=== PATIENT | male | born 1960 | race Caucasian/White ===

== ENCOUNTER → 2024-11-14 12:36 | Outpatient (BNVA) | payer MEDICARE, OTHER, SELFPAY | PROVIDERS: PCP Nurse Practitioner Family; Visit Provider Nurse Practitioner Family | DX: I10 Essential (primary) hypertension (principal); E55.9 Vitamin D deficiency, unspecified; Z12.5 Encounter for screening for malignant neoplasm of prostate | CPT/HCPCS: 80053; 80061; 82306; 82607; 84443; 85025; G0103 ==

== ENCOUNTER 2025-02-05 00:42 | Observation (INO) | payer MEDICARE, OTHER, SELFPAY ==
--- OUTSIDE RECORDS SUMMARY | 2018-11-02 10:45 | XMS_ITS | Continuity of Care Document ---
Author Organization [facility] Address [address] [place] [address] Phone Care Team Providers Care Assortment Planner Name Role Phone Felix Mcbride MD Unavailable Unavailable Allergies, Adverse Reactions, Alerts Substance Reaction Status Criticality No Known Allergies Active No Inform ation Medications Medication Instructions Dosage Effective Dates (start - stop) Status Comments NO CURRENT MEDICATIONS_ N/A Not Applicable - Active Procedures Procedure Date Office Visit Established Office Visit Established Office Visit New Advance Directives Directive Yes / No Effective Date File Name No Information Encounters Encounter Description Practice Location Reason(s) For Visit Diagnoses Date Provider Providers Copied on Encounter Office Visit Established [facility], [address], [place], [facility], tel:[phone] [facility] Pain in right elbow Reed Washington. [address], [place], [id number]. tel:[phone] Office Visit Established [facility], [address] [place], [address], tel:[phone] [facility] Pain in right elbow Reed [place]. [address], [place], [id number]. tel:[phone] Office Visit New [facility], [address], [place], [facility], tel:[phone] [facility] Pain in right elbow Reed Washington. [address], [place], [id number]. tel:[phone] Family History Family Member Type Diagnosis Age At Onset No Information Payers Payer name Insurance type Covered green party ID Keaton holm(s) Work Comp Insurance W [id number] Social History Type Description Quantity Date Captured Comments Sex Male Smoking Status No Information Chief Complaint And Reason For Visit No Information History Of Present Illness Encounter Date Complaint History Of Prese nt Illness No Information Medications Administered Medication Instructions Dosage Effective Dates (start - stop) Status Comments No Drug Therapy Prescribed Instructions Date Instruction Additional Infor mation No Information Assessments Type Assessment Date No Information
[2025-02-05] VITALS (27 sets, daily range): BP systolic 114–166; BP diastolic 63–112; PULSE 52–80; RESP 14–28; TEMP 36.4–37.1; O2SAT 91–98; BMI 26.1; BMI 25.9
--- NOTE | 2025-02-05 02:17 | USCV_ITS ---
Klaus Corbett Age: 64 Gender: M : 1960 Exam Date: 02/05/2025 07:32 Ordering Phys: Miky Freedman MD Technologist: Nader Lizama Exam Location: [facility] Indication: new onset afib BP: 123 / 82 HR: 57 Rhythm: Sinus Technical Quality: Adequate MEASUREMENTS (Male / Female) Normal Values 2D ECHO LV Diastolic Diameter PLAX 4.9 cm 4.2 - 5.9 / 3.9 - 5.3 cm IVS Diastolic Thickness 1.1 cm 0.6 - 1.0 / 0.6 - 0.9 cm IVS Systolic Thickness 1.4 cm LVPW Diastolic Thickness 1.2 cm 0.6 - 1.0 / 0.6 - 0.9 cm LVPW Systolic Thickness 1.4 cm LVOT Diameter 2.0 cm LV Ejection Fraction 2D Teich 69.0 % LV Ejection Fraction MOD 4C 67.9 % LV Ejection Fraction MOD 2C 75.2 % LV Ejection Fraction 2C AL 75.5 % LA Diameter 3.1 cm RA Systolic Volume 4C AL 40.1 ml RA Systolic Volume 4C MOD 40.0 ml LA Sys Volume AL 28.0 cm cubed LA Sys Volume Index AL 15.1 cm cubed/m squared Aorta at Sinotubular Diameter 2.4 cm IVC Diameter 1.4 cm M-MODE LA Ao Ratio MM 1.4 AV Cusp Separation MM 2.2 cm DOPPLER AV Peak Velocity 180.0 cm/s LVOT Peak Velocity 124.0 cm/s AV Area Cont Eq vti 2.2 cm squared AV Area Cont Eq pk 2.2 cm squared MV Peak Velocity 110.0 cm/s MV Area PHT 5.8 cm squared Mitral E to A Ratio 1.0 TR Peak Velocity 240.0 cm/s TR Peak Gradient 23.0 mmHg TR Mean Velocity 202.0 cm/s TR Mean Gradient 17.0 mmHg TR Velocity Time Integral 73.5 cm PV Peak Velocity 91.0 cm/s RV Ejection Time 0.3 s FINDINGS Left Ventricle Normal left ventricular size and systolic function, EF 75%.mild left ventricular hypertrophy. No regional wall motion abnormalities. Grade I/IV diastolic dysfunction (abnormal relaxation filling pattern), normal to mildly elevated filling pressures. Right Ventricle Normal right ventricular size and systolic function. Right Atrium Normal right atrial size. Left Atrium Normal left atrial size. Mitral Valve Mild mitral annular calcification. Trace mitral valve regurgitation. Aortic Valve Thickened aortic valve. Mild aortic valve regurgitation. Aortic valve sclerosis. Tricuspid Valve No gross abnormalities noted Pulmonic Valve Pulmonic valve not well visualized. Pericardium No pericardial effusion. Aorta Normal aortic annulus size. IVC Normal inferior vena cava. CONCLUSIONS Normal left ventricular size and systolic function, EF 75%.mild left ventricular hypertrophy. No regional wall motion abnormalities. Grade I/IV diastolic dysfunction (abnormal relaxation filling pattern), normal to mildly elevated filling pressures. Mild mitral annular calcification. Trace mitral valve regurgitation. Thickened aortic valve. Mild aortic valve regurgitation. Features of aortic valve sclerosis. There is no pericardial effusion. There are no intracardiac masses. No similar previous studies are available for comparison Dr Nikki Mccrary MD FACC (Electronically Signed) Final Date: 05 February 2025 09:20 S
--- NOTE | 2025-02-05 02:17 | P.HP_ITS ---
Providers/Chief Complaint Admitting Physician: Miky Freedman MD Primary Care Provider: MAR Ruth Chief Complaint: Afib RVR History of Present Illness Klaus Corbett Jr is a 64 year old male who sees nurse practitioner Brynn in [place]. He has history of hypertension and hyperlipidemia but not diabetes. Patient is on amlodipine but not cholesterol medication because his cholesterol was borderline. 4:30 PM on 02/04/2025 he was on his porch and got up to take the ice tea into the fridge when he felt dyspnea on exertion tachycardia tightness in his chest and left arm became numb. He went to the emergency department at [facility] and saw Dr. Andry Vazquez. Patient was treated with diltiazem drip and this slowed his heart rate and he felt just a little bit of discomfort in his arm heart rate was down to 80-86. He was referred for admission on Cardizem drip and accepted. By the time the patient reached our hospital he was back in sinus rhythm. He was placed in CDU on observation at this time. Patient denies past history of atrial fibrillation, coronary artery disease, family history of coronary artery disease. Past surgical history knee surgery 2 years ago Family history negative for coronary artery disease Vitals at [facility] blood pressure 122/76 pulse 86 respirations 17 O2 sat 96% on room air with atrial fibrillation on Cardizem drip Review of Systems Narrative: General No fevers chills weight gain weight loss Cardiovascular positive for palpitations and chest discomfort as above he has not had leg swelling Respiratory positive for dyspnea on exertion with today's episode but typically not he denies coughing or wheezing GI no nausea vomiting diarrhea constipation no dysuria hematuria Neuro no seizures strokes limb weakness Malignancy history negative Hematologic no history of clots or bleeding disorder Psych negative for depression or anxiety Medications/Allergies Home Medications ?Medication ?Instructions ?Recorded ?Confirmed ?Last Taken ?Type amlodipine 10 mg tablet 10 mg PO DAILY 11/14/2412/17 Unknown History magnesium aspart,citrate,oxide mg PO 11/14/24 01/06/25 Unknown History multivitamin 1 tab PO DAILY 11/14/2412/17 Unknown History omega 6-iyk-ayl-fish oil 1,000 mg 1 cap PO DAILY 11/1401/06/25 Unknown History (120 mg-180 mg) capsule (Fish Oil) ciprofloxacin 0.3 %-dexamethasone 4 drp otic (ear) BID 7 days #7.5 mL 01/06/25 01/06/25 Unknown Rx 0.1 % ear drops,suspension Allergies Allergy/AdvReac Type Severity Reaction Status Date / Time No Known Allergies Allergy Unverified 01/06/25 09:27 PFSH Acute PFSH: Medical History (Updated 02/05/25 @ 02:23 by Miky Freedman MD) Hyperlipidemia Heart murmur Muscular dystrophy Hypertension Surgical History History of colonoscopy about 2014 H/O right knee surgery Social History (Updated 02/05/25 @ 02:22 by Miky Freedman MD) Smoking and tobacco/nicotine status: never used tobacco/nicotine Second hand smoke exposure: No Alcohol intake: current Alcohol intake frequency: few times a week Alcohol type: beer and hard liquor Alcohol use comment: 4 a week Substance/Drug Use: never Additional social history: He wants full CODE STATUS as discussed today with Miky Freedman MD on 02/05/2025 in the presence of his son Daniel Corbett who works here at the [employer] overseeing environmental services Lives independently: Yes Household members: spouse Marital status: Current occupational status: retired and disabled Previous occupational history: 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 Current gender identity: Male Tona/[employer]: [employer] Special tona needs: No Agree to transfusion: Yes Vitals/I&O/Wt Last Vital Signs Temp 97.5 F L 02/05/25 00:51 Pulse 60 02/05/25 01:46 Resp 19 H 02/05/25 01:30 BP 131/78 02/05/25 01:30 Pulse Ox 92 02/05/25 01:30 O2 Del Method Room Air 02/05/25 01:30 Weight last 48 hrs Weight 73.5 kg Physical Exam Narrative: General well-developed well-nourished male in no acute cardiopulmonary stress Neck no bruits Oral Mallampati 1 CV regular rate and rhythm Lungs clear to auscultation bilaterally Abdomen positive bowel tones soft nontender Calves no tenderness cords pretibial edema Mood and affect normal Data Other Labs: Potassium 4.3 magnesium 1.9 at [facility]. CPK 376 MB 11.9 troponin negative A&P Assessment and plan 1. New onset atrial fibrillation: He has spontaneously converted to sinus rhythm. He has already been given apixaban 5 mg and intended to be on twice a day. If he remains in sinus rhythm he can be discharged later today to wear an event monitor to see if he is going in and out of atrial fibrillation. He should stay on anticoagulation for now. Stopped Norvasc and start diltiazem if heart rate allows will go with short acting 30 mg for now if there is significant bradycardia will avoid 2. Hypertension: Stable 3. Hyperlipidemia: 11/14/2024 notable for triglycerides 394 LDL 101 cholesterol 219 HDL 39. This is not a good lipid profile. Patient was started on atorvastatin 20 mg daily 4. Heart murmur: Plan echo to follow-up heart murmur and A-fib. On cursory cardiac exam I did not appreciate a murmur 5. Muscular dystrophy: Recently diagnosed PDMP PDMP Reviewed: Not Reviewed Attestations Medical Necessity Statement*: Patient is a hospital on observation and will require an anticipated less than 2 midnights for workup prior to discharge Coding Level of Care Code Acute Code for Chg Fwd Diagnoses New onset atrial fibrillation I48.91 Hypertension I10 Hyperlipidemia E78.5 Heart murmur R01.1 Muscular dystrophy G71.00 Time Spent (min) 70
[2025-02-05 09:42] LABS: Estmated Average Glucose 126; Hemoglobin A1C 6.0 % (4.0-6.0)
[2025-02-05 09:54] LABS: Cholesterol 210 mg/dL (0-200); HDL Cholesterol 39 mg/dL (60-100); Thyroid Stimulating Hormone 1.59 uIU/mL (0.27-4.20); Triglycerides 200 mg/dL (0-150)
--- NOTE | 2025-02-05 12:05 | P.DS_ITS ---
Discharge Providers Date of Admission: 02/05/25 00:42 Date of Discharge: February 05, 2025 Attending Provider at Admission: Miky Freedman MD Attending Provider at Discharge: Jarad Bardales MD Primary Care Provider: MAR Ruth Diagnoses at Discharge Discharge Diagnosis 1. New onset atrial fibrillation: 2. Hypertension: 3. Hyperlipidemia: 4. Heart murmur: 5. Muscular dystrophy: Reason for Visit Reason for Visit: Afib RVR Hospital Course Hospital Course This is a 64-year-old male who has a history of hyperlipidemia, hypertension, who presents to [facility] due to chest pain and palpitations Patient was admitted to [facility] for new onset atrial fibrillation - On Cardizem drip, but converted to normal sinus rhythm upon arrival to [facility] - He was managed on metoprolol 12.5 twice daily - Patient's CHADS2 Vasc score was 2, discussed risk and benefits of anticoagulant therapy, patient voiced understanding, all questions answered, agreed to proceed, managed on Eliquis - He will be discharged on metoprolol 12.5 mg twice daily, with Eliquis 5 mg twice daily with close follow-up with primary care provider For his complaints of chest pain - No recurrent chest pain - Patient declines statin - Will be discharged on Eliquis as above - Nitro as needed for chest pain CONCLUSIONS Normal left ventricular size and systolic function, EF 75%.mild left ventricular hypertrophy. No regional wall motion abnormalities. Grade I/IV diastolic dysfunction (abnormal relaxation filling pattern), normal to mildly elevated filling pressures. Mild mitral annular calcification. Trace mitral valve regurgitation. Thickened aortic valve. Mild aortic valve regurgitation. Features of aortic valve sclerosis. There is no pericardial effusion. There are no intracardiac masses. No similar previous studies are available for comparison -Troponin from [facility] was 0.012 -Denied any chest pain during that hospitalization -Patient was advised if he were to have any recurrent chest pain to immediately go to emergency room - Nitroglycerin at as needed - Follow-up with cardiology for consideration of stress testing Physical Exam Const: COMMON NORMALS: no acute distress and patient oriented x3 Resp: COMMON NORMALS: normal respiratory effort, No retractions, No use of accessory muscles and clear to auscultation bilaterally AUSCULTATION: clear to auscultation bilaterally Cardio: COMMON NORMALS: regular rate, regular rhythm, S1 normal heart sound present and S2 normal heart sound present RATE: regular rate RHYTHM: regular rhythm HEART SOUNDS: S1 normal heart sound present and S2 normal heart sound present GI: COMMON NORMALS: Normal to inspection, nondistended, normoactive bowel sounds present and non-tender Extremity: COMMON NORMALS: no pedal edema Neuro: COMMON NORMALS: patient oriented x3 Psych: COMMON NORMALS: mental status grossly normal Discharge Data Studies Completed and Pending Completed Studies During Hospitalization Category Date Time Status CV. echo complete* [id number] Routine Ultrasound 02/05/25 02:17 Completed Pending at discharge Category Date Time Status Basic Metabolic Panel AM LABS Lab 02/06/25 04:00 Ordered Magnesium AM LABS Lab 02/06/25 04:00 Ordered Phosphorus AM LABS Lab 02/06/25 04:00 Ordered Laboratory Results Estimat Average Glucose 126 02/05/25 08:49 Hemoglobin A1c 6.0 % (4.0-6.0) 02/05/25 08:49 Triglycerides 200 mg/dL (0-150) H 02/05/25 08:49 Cholesterol 210 mg/dL (0-200) H 02/05/25 08:49 LDL Cholesterol, Calc 131 mg/dL (50-129) H 02/05/25 08:49 HDL Cholesterol 39 mg/dL (60-100) L 02/05/25 08:49 LDL/HDL Ratio 3.36 RATIO (0.00-3.22) H 02/05/25 08:49 Cholesterol/HDL Ratio 5.38 mg/dL (1.0-5.00) H 02/05/25 08:49 TSH 1.59 uIU/mL (0.27-4.20) 02/05/25 08:49 Vitals Last Vital Signs Temp 97.9 F 02/05/25 08:00 Pulse 80 02/05/25 08:00 Resp 22 H 02/05/25 08:00 BP 150/107 02/05/25 08:00 Pulse Ox 95 02/05/25 08:00 O2 Del Method Room Air 02/05/25 08:00 Discharge Plan Discharge Patient Disposition: Home Condition: Stable Prescriptions: New metoprolol tartrate 25 mg Tablet 12.5 mg PO Q12H 30 Days Qty: 30 0RF Eliquis 5 mg Tablet 5 mg PO BID@0900,2100 30 Days Qty: 30 0RF Eliquis 5 mg tablet 5 mg PO ONCE 1 Days Qty: 1 0RF metoprolol tartrate 25 mg tablet 12.5 mg PO ONCE 1 Days Qty: 1 0RF nitroglycerin 0.4 mg tablet, sublingual 0.4 mg sublingual Q5M 30 Days Qty: 30 0RF Rx Instructions: do not exceed 3 doses per episode Continued multivitamin Tablet 1 tab PO DAILY amlodipine 10 mg tablet 10 mg PO DAILY omega 4-wnf-rvs-fish oil [Fish Oil] 1,000 (120-180) mg capsule 1 cap PO DAILY magnesium aspart,citrate,oxide 400 mg magnesium capsule 400 mg PO DAILY Discharge Order = DC NOW: Discharge Order (Routine); Ordered 02/05/25 Ordered By: Jarad aBrdales Referrals: Jerrell Albarran M.D [Physician, Cardiology] - 7-10 days Discharge Diet: Cardiac Discharge Activity: Resume usual activity Patient Instructions: Atrial Fibrillation, Metoprolol (By mouth), Nitroglycerin, Rapid Release (By mouth), Apixaban (By mouth) (Eliquis), A-fib (Atrial Fibrillation) (DC), Muscular Dystrophy (DC), Heart Healthy Diet (DC), Hyperlipidemia (DC), Opioid Safety, Stroke Stoplight, Patient Portal & Aung Instructions Activity Restrictions/Additional Instructions: - If you have any chest pain please go to the emergency room - Please follow-up with cardiology in 1 week - I am discharging you on Eliquis, Eliquis is a strong blood thinner - If you develop bloody or black stools, if you have a significant fall or trauma, or significant headache or blurry vision please immediately go to emergency room - Have your primary care provider recheck your hemoglobin in 1 week - Your triglycerides are 200, and cholesterol is 210 please discuss with primary care about cholesterol medication Discharge Attestations Time Spent in Discharge Care*: greater than 30 min Quality Metrics Clinical Quality Measures [ No reported AMI, CVA or VTE this stay] Coding Level of Care Code 03226 Total time (in minutes) for Discharge: 45 Diagnoses New onset atrial fibrillation I48.91 Hypertension I10 Hyperlipidemia E78.5 Heart murmur R01.1 Muscular dystrophy G71.00
--- NOTE | 2025-02-05 12:22 | ECG_ITS ---
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 Measurements Intervals [place] Rate: 60 P: -14 DE: 213 QRS: -30 QRSD: 105 T: -4 QT: 379 QTc: 381 Interpretive Statements SINUS RHYTHM WITH FIRST DEGREE AV BLOCK BORDERLINE LEFT AXIS DEVIATION [QRS AXIS < -20] INCOMPLETE RIGHT BUNDLE BRANCH BLOCK [90+ ms QRS DURATION, TERMINAL R IN V1/V2, 40+ ms S IN I/aVL/V4/V5/V6] No previous ECG available for comparison Electronically Signed On 02-05-2025 17:37:33 CDT by Nikki Mccrary M.D. [email or web address]
--- NOTE | 2025-02-05 13:13 | PC.NURSE ---
Written and verbal education provided to patient and family at bedside. Patient educated on new and continued meds. Patient educated on A-fib and Stroke stoplight. Patient and family had no questions.
== END 2025-02-05 13:14 | disposition home or self-care (01) ==
PROVIDERS: Admitting Provider Internal Medicine; PCP Nurse Practitioner Family; Visit Provider Family Medicine
DX: I48.91 Unspecified atrial fibrillation (principal); I10 Essential (primary) hypertension; E78.5 Hyperlipidemia, unspecified; R01.1 Cardiac murmur, unspecified; G71.00 Muscular dystrophy, unspecified
CPT/HCPCS: 36415; 80061; 83036; 84443; 93005; 93306; G0378; G0379; J9999

== ENCOUNTER → 2025-02-10 08:58 | Outpatient (BNVA) | payer MEDICARE, OTHER, SELFPAY | PROVIDERS: PCP Nurse Practitioner Family; Visit Provider Internal Medicine | DX: Z09 Encounter for follow-up examination after completed treatment for conditions other than malignant neoplasm (principal); I48.91 Unspecified atrial fibrillation; I10 Essential (primary) hypertension; Z79.01 Long term (current) use of anticoagulants | CPT/HCPCS: 99204 ==

== ENCOUNTER 2025-02-16 07:04 | Outpatient (CLI) | payer MEDICARE, OTHER, SELFPAY ==
[2025-02-16 07:13] VITALS: BMI 26.1
--- NOTE | 2025-02-16 07:24 | ECG_ITS ---
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 Interpretive Statements Lung unchanged pre/post procedure; Intraprocedure shortess of breath; Symptoms resoled by discharge PROCEDURE: At the baseline, the patient's blood pressure was 137/78 with a heart rate of 63. The baseline electrocardiogram showed normal sinus rhythm with normal ST-Ts. Nonspecific IVCD. The patient exercised for 5 minutes and 45 sec on a standard Ignacio protocol. Patient attained a maximum heart rate of 139 beats per minute(90% of the maximum predicted heart rate) with a blood pressure at the peak exercise of 200/131 mm Hg. The EKG at the peak exercise revealed no significant change. Patient did not have any chest pain or any significant cardiac arrhythmias with the exercise During the recovery phase, there were no new changes. Blood pressure at the end of the recovery phase was 175/80 mm Hg with a heart rate of 92 per minute. CONCLUSION: 1. Normal EKG response to treadmill exercise 2. No exercise-induced chest pain or cardiac arrhythmia 3. Slightly impaired exercise tolerance, attained a maximum of 7.0 METs 4. Hypertensive response to exercise Electronically Signed On 02-19-2025 20:53:45 CDT by Nikki Mccrary M.D. [email or web address]
--- NOTE | 2025-02-16 07:24 | NMCV_ITS ---
NM jaqueline perf SPECT r/s* [id number] Klaus Corbett Age: 64 Gender: M : 1960 Exam Date: 02/16/2025 08:09 Ordering Phys: Jerrell Albarran M.D ([email or web address]) Technologist: GM Belle Exam Location: [facility] Indications: CP STRESS TEST Please [facility] IMAGE PROTOCOL Rest/Stress 1 Exercise Day Radiopharmaceutical Dose (mCi) Administration Site Administered by Rest: Tc-99m 10.7 IV GM Wan Sestamibi Stress:Tc-99m 32.4 IV GM Wan Sestamiabdulaziz Rest: 16-Feb-2025 60 Discovery 630 Stress: 16-Feb-2025 30 Discovery 630 Radiopharmaceutical was injected at 85 % maximum heart rate. Images obtained in supine and prone position. SPECT RESULTS Technical Quality: Good Raw Data Analysis: Normal Image Corrections: No attenuation or motion correction applied Summed Stress Score: 3 Summed Rest Score: 8 Summed Difference Score: 0 PERFUSION FINDINGS Areas of slightly decreased tracer uptake were noted in the mid inferolateral, mid inferoseptal and apical inferior wall segments. No significant reversibility was noted in these areas. FUNCTIONAL RESULTS (calculated via Gated SPECT) Stress Image LV EF (%): 70 Stress EDV (mL):84 TID: 0.98 Stress ESV (mL):25 FUNCTIONAL FINDINGS: Segmental wall motion analysis revealing no gross wall motion abnormalities IMPRESSIONS 1. Myocardial perfusion imaging revealing areas of persistent decreased tracer uptake involving the mid inferolateral, mid inferoseptal and apical inferior segments suggesting myocardial scarring versus attenuation artifact 2. Normal LV ejection fraction of 70% 3. LV wall motion analysis revealing no gross wall motion abnormalities. 4. Normal LV volume Low probability for coronary ischemia, based on the above findings Dr Nikki Mccrary MD FAC (Electronically Signed) Final Date: 16 February 2025 12:31 S
[2025-02-16 08:57] VITALS: BP 175/80; PULSE 86
== END 2025-02-16 07:05 | disposition home or self-care (01) ==
PROVIDERS: PCP Nurse Practitioner Family; Visit Provider Internal Medicine
DX: R07.9 Chest pain, unspecified (principal); R94.39 Abnormal result of other cardiovascular function study; I49.8 Other specified cardiac arrhythmias; I45.4 Nonspecific intraventricular block
CPT/HCPCS: 36415; 78452; 93017; A9500